=== PATIENT | female | born 1985 | race Caucasian/White ===

== ENCOUNTER 2021-07-08 10:56 | Emergency (ER) | payer BC | END 2021-07-08 15:50 | disposition home or self-care (01) | LOC: ER1 10:56 | DX: S82.61XA Displaced fracture of lateral malleolus of right fibula, initial encounter for closed fracture (principal); S82.201A Unspecified fracture of shaft of right tibia, initial encounter for closed fracture; K21.9 Gastro-esophageal reflux disease without esophagitis; M93.88 Other specified osteochondropathies other; X50.1XXA Overexertion from prolonged static or awkward postures, initial encounter; Y92.9 Unspecified place or not applicable | CPT/HCPCS: 29515; 73590; 73610; 73630; 73700; 99284 ==

== ENCOUNTER → 2021-07-23 | Outpatient (CLI) | payer BC | LOC: KOH-I 08:00 | DX: M93.271 Osteochondritis dissecans, right ankle and joints of right foot (principal) | CPT/HCPCS: 73721 ==

== ENCOUNTER 2021-12-30 13:25 | Emergency (ER) | payer OTHER | END 2021-12-30 15:37 | disposition home or self-care (01) | LOC: ER1 13:25 | DX: S93.601A Unspecified sprain of right foot, initial encounter (principal); S93.401A Sprain of unspecified ligament of right ankle, initial encounter; K21.9 Gastro-esophageal reflux disease without esophagitis; X50.9XXA Other and unspecified overexertion or strenuous movements or postures, initial encounter; Y99.0 Civilian activity done for income or pay; Y92.89 Other specified places as the place of occurrence of the external cause | CPT/HCPCS: 73610; 73630; 99283 ==